=== PATIENT | female | born 2000 | race Caucasian/White ===

== ENCOUNTER 2020-06-16 15:01 | Emergency (ER) | payer OTHER ==
[~2020-06-16 15:01] MED LIST: ALL DAY ALLERGY10 MG PO; AMOXICILLIN875 MG PO; ESCITALOPRAM OX10 MG PO; MEDROL 4MG DOSEP4 MG PO; VYVANSE40 MG PO
[2020-06-16 16:49] LABS: BASOPHIL 0.6 % (0-2); EOSINOPHIL 1.4 % (0-5); HCT 23.5 % (37.0-47.0); LYMPHOCYTE 33.4 % (15-48); MCH 23.4 pg (25.0-31.0); MCHC 29.8 g/dL (32.0-36.0); MCV 78.6 fL (78.0-100.0); MONOCYTE 5.4 % (0-12); MPV 11.9 fL (6.0-9.5); NEUTROPHIL 58.9 % (41-80); NRBC 0; PLT 100 K/uL (150-400); RBC 2.99 M/uL (4.20-5.40); RDW 16.1 % (11.5-14.0); WBC 9.2 K/uL (4.0-10.5)
[2020-06-16 17:01] LABS: BILIRUBIN 1+ mg/dL (NEGATIVE); BLOOD 3+ Ery/uL (NEGATIVE); CLARITY CLEAR (CLEAR); COLOR YELLOW (YELLOW); GLUCOSE (U) NORMAL (NORMAL); LEUKOCYTES NEGATIVE Leu/uL (NEGATIVE); NITRITE NEGATIVE (NEGATIVE); PROTEIN 1+ mg/dL (NEGATIVE); SPECIFIC GRAVITY 1.025 (1.001-1.030)
[2020-06-16 17:07] LABS: ALBUMIN 2.7 g/dL (3.4-5.0); BILIRUBIN - TOTAL 0.3 mg/dL (0.2-1.0); BUN/CREAT RATIO (CALC) 22.2 RATIO; CREATININE 0.63 mg/dL (0.51-0.95); GLOBULIN (CALCULATION) 3.6 g/dL; POTASSIUM 3.5 mmol/L (3.5-5.1); TOTAL PROTEIN 6.3 g/dL (6.4-8.2)
[2020-06-16 17:11] LABS: BACTERIA TRACE; SQUAMOUS EPITHELIAL CELLS RARE; URINARY RBC 20-50
== END 2020-06-16 22:31 | disposition home or self-care (01) ==
LOC: FER 15:01
PROVIDERS: Emergency Medicine
DX: D64.9 Anemia, unspecified (principal); N93.8 Other specified abnormal uterine and vaginal bleeding; R10.2 Pelvic and perineal pain; I10 Essential (primary) hypertension; J45.909 Unspecified asthma, uncomplicated; E66.9 Obesity, unspecified; F17.200 Nicotine dependence, unspecified, uncomplicated; Z88.8 Allergy status to other drugs, medicaments and biological substances
CPT/HCPCS: 36415; 36430; 76830; 80053; 81001; 85025; 86850; 86900; 86901; 86922; J1410; J7050; P9016

== ENCOUNTER 2020-06-17 18:52 | Day surgery (SDCO) | payer OTHER ==
[2020-06-17 19:44] LABS: BASOPHIL 0.6 % (0-2); EOSINOPHIL 1.1 % (0-5); HCT 23.7 % (37.0-47.0); HGB 7.2 g/dl (12.5-16.0); LYMPHOCYTE 30.6 % (15-48); MCH 24.5 pg (25.0-31.0); MCHC 30.4 g/dL (32.0-36.0); MCV 80.6 fL (78.0-100.0); MONOCYTE 6.1 % (0-12); MPV 11.7 fL (6.0-9.5); NEUTROPHIL 61.2 % (41-80); NRBC 0; PLT 224 K/uL (150-400); RBC 2.94 M/uL (4.20-5.40); RDW 16.2 % (11.5-14.0)
[2020-06-17 20:02] LABS: BUN/CREAT RATIO (CALC) 23.7 RATIO; CREATININE 0.59 mg/dL (0.51-0.95); POTASSIUM 3.5 mmol/L (3.5-5.1)
[2020-06-17 20:36] LABS: IRON % SATURATION 6.2 %SAT (20-50)
[2020-06-17 21:20] LABS: INR 1.15 (0.9-1.2); PTT 26.9 SECONDS (22.2-34.7)
[2020-06-18 09:42] LABS: HCT 28.7 % (37.0-47.0); HGB 9.1 g/dl (12.5-16.0); MCH 25.8 pg (25.0-31.0); MCHC 31.7 g/dL (32.0-36.0); MCV 81.3 fL (78.0-100.0); MPV 11.2 fL (6.0-9.5); RBC 3.53 M/uL (4.20-5.40); RDW 16.1 % (11.5-14.0); WBC 10.6 K/uL (4.0-10.5)
[2020-06-18 10:28] LABS: FT4 (FREE T4) 1.3 ng/dL (0.76-1.46)
[2020-06-18] MEDS ORDERED: FEOSOL325 MG PO (12:21)
== END 2020-06-18 17:58 | disposition home or self-care (01) ==
LOC: FER 18:52 → FOB 20:41
PROVIDERS: Emergency Medicine; Obstetrics & Gynecology; ADMIT Obstetrics & Gynecology
DX: N92.0 Excessive and frequent menstruation with regular cycle (principal); N85.8 Other specified noninflammatory disorders of uterus; D62 Acute posthemorrhagic anemia; E66.01 Morbid (severe) obesity due to excess calories; F90.9 Attention-deficit hyperactivity disorder, unspecified type; F98.8 Other specified behavioral and emotional disorders with onset usually occurring in childhood and adolescence; Z20.822 Contact with and (suspected) exposure to COVID-19; Z82.49 Family history of ischemic heart disease and other diseases of the circulatory system
CPT/HCPCS: 36415; 36430; 80048; 83540; 83550; 84439; 84443; 85025; 85610; 85730; 86850; 86900; 86901; 86922; 88305; G0378; J1100; J1410; J2250; J2405; J2704; J2916; J3010; J7030; J7120; P9016; U0002

== ENCOUNTER 2020-08-03 20:18 | Emergency (ER) | payer OTHER ==
[~2020-08-03 20:18] MED LIST changes: +FEOSOL325 MG PO
[2020-08-03 20:56] LABS: BASOPHIL 0.4 % (0-2); EOSINOPHIL 2.1 % (0-5); HCT 37.6 % (37.0-47.0); HGB 11.6 g/dl (12.5-16.0); LYMPHOCYTE 24.7 % (15-48); MCH 24.8 pg (25.0-31.0); MCHC 30.9 g/dL (32.0-36.0); MCV 80.3 fL (78.0-100.0); MONOCYTE 4.5 % (0-12); MPV 10.9 fL (6.0-9.5); NEUTROPHIL 67.9 % (41-80); NRBC 0; PLT 265 K/uL (150-400); RBC 4.68 M/uL (4.20-5.40); RDW 15.3 % (11.5-14.0); WBC 11.3 K/uL (4.0-10.5)
[2020-08-03 21:11] LABS: ALBUMIN 3.2 g/dL (3.4-5.0); BILIRUBIN - TOTAL 0.2 mg/dL (0.2-1.0); BUN/CREAT RATIO (CALC) 24.6 RATIO; CREATININE 0.57 mg/dL (0.51-0.95); POTASSIUM 3.5 mmol/L (3.5-5.1); TOTAL PROTEIN 7.2 g/dL (6.4-8.2)
[2020-08-03] MEDS ORDERED: ZPAK PO (21:29)
[2020-08-03] MEDS ORDERED: MOTRIN600 MG PO (21:29)
== END 2020-08-03 22:05 | disposition home or self-care (01) ==
LOC: FER 20:18
PROVIDERS: Nurse Practitioner Family
DX: J06.9 Acute upper respiratory infection, unspecified (principal); S80.212A Abrasion, left knee, initial encounter; S80.211A Abrasion, right knee, initial encounter; J45.909 Unspecified asthma, uncomplicated; Z88.8 Allergy status to other drugs, medicaments and biological substances; X58.XXXA Exposure to other specified factors, initial encounter
CPT/HCPCS: 36415; 71045; 80053; 85025; 85379; 87880; J7030